=== PATIENT | female | born 1970 | race Caucasian/White ===

== ENCOUNTER 2016-06-26 12:18 | Emergency (ER) | payer OTHER ==
[~2016-06-26] VITALS: Ht 172.7 cm; Wt 79.4 kg
[~2016-06-26 12:18] MED LIST: AZITHROMYCIN250 MG PO; BENTYL20 MG PO; CLINDAMYCIN HY300 MG PO; CYCLOBENZAPRINE5 M2 PO; DILAUDID2 M1 PO; FLAG500 PO; MEDROL4 M2 PO; TESSALON PERLE100 MG PO; TRAMADOL50 MG PO; ZOFRAN ODT4 MG PO
--- NOTE | 2016-06-26 15:27 | ED GI/GU/ABDOMINAL COMPLAINT ---
History of Present Illness General Chief Complaint: General Adult Stated Complaint: PT THINKS ITS HER GALLBLADDER Source: patient, old records Exam Limitations: no limitations Vital Signs & Intake/Output Vital Signs & Intake/Output Vital Signs Date Time Temp Pulse Resp B/P Pulse O2 O2 Flow FiO2 Ox Delivery Rate 06/26 1738 98.0 62 18 108/72 98 Room Air 06/26 1555 97.8 63 20 110/72 99 Room Air 06/26 1226 98.2 77 20 138/92 99 Room Air Allergies Coded Allergies: Penicillins (Severe, THROAT CLOSES 06/26/16) hydrocodone (Mild, ITCHING 06/26/16) morphine (Mild, ITCHING 06/26/16) oxycodone (Mild, ITCHING 06/26/16) Reconcile Medications Cholecalciferol (Vitamin D3) (Vitamin D3) (Unknown Strength) CAPSULE (Unknown Dose) PO DAILY SUPPLEMENT (Reported) Cyanocobalamin (Vitamin B-12) (Unknown Strength) TABLET (Unknown Dose) PO DAILY SUPPLEMENT (Reported) Fluticasone Propionate (Flonase Allergy Relief) 50 MCG/ACTUATION SPRAY.SUSP 2 SPRAY NASB DAILY ALLERGIES (Reported) Ibuprofen 200 MG CAPSULE 2-4 CAP PO PRN PAIN (Reported) Ondansetron (Zofran Odt) 4 MG TAB.RAPDIS 1 TAB SL TID PRN NAUSEA Pantoprazole Sodium (Protonix) 40 MG TABLET.DR 1 TAB PO DAILY EPIGASTRIC PAIN Triage Note: TRIAGE: PT TO ER C/C MID/UPPER ABD PAIN WHICH RADIATES STRAIGHT THROUGH INTO BACK, ONSET SATURDAY. CONSTANT SINCE ONSET. +N/-V/-D. LNBM YESTERDAY. -URINARY S/S. LMP 05/13/2016. STATES DECREASED PO INTAKE WELL. Triage Nurses Notes Reviewed? yes ? n Is pt currently ? No HPI: PATIENT IS A 46-YEAR-OLD FEMALE PRESENTS COMPLAINING OF UPPER ABDOMINAL PAIN. sYMPTOMS ONSET ON saturday. Increasing belching sensation and nausea associated with her pain. Pain feels similar to when she had a "inflamed gallbladder" previously. Eating exacerbates symptoms. Pain radiates through to her back. Low-grade fever at home. Symptoms are currently moderate to severe. Low grade fevers. Denies vomiting. Past History Travel History Traveled to [place] past 21 day No Medical History Any Pertinent Medical History? see below for history Neurological: migraine EENT: NONE Cardiovascular: hyperlipidemia, PVC Respiratory: asthma, (CHILDHOOD). 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 No Review of Systems Review of Systems Constitutional: Reports: fever, malaise. Denies: chills. EENTM: Reports: no symptoms. Respiratory: Denies: cough, short of breath. Cardiovascular: Denies: chest pain. GI: Reports: see HPI. Genitourinary: Reports: no symptoms. Musculoskeletal: Reports: no symptoms. Skin: Reports: no symptoms. Neurological/Psychological: Reports: no symptoms. Hematologic/Endocrine: Reports: no symptoms. Immunologic/Allergic: Reports: no symptoms. Physical Exam Physical Exam General Appearance: well developed/nourished, alert, awake Head: atraumatic, normal appearance Eyes: Bilateral: normal appearance, PERRL, EOMI. Ears, Nose, Throat, Mouth: hearing grossly normal, moist mucous membrane Neck: normal inspection, supple, full range of motion Respiratory: normal breath sounds, chest non-tender, no respiratory distress, lungs clear Cardiovascular: regular rate/rhythm Gastrointestinal: normal bowel sounds, soft, EPIGASTRIC AND RIGHT UPPER QUADRANT TENDERNESS Back: normal inspection, normal range of motion Extremities: normal range of motion Neurologic/Psych: no motor/sensory deficits, awake, alert, oriented x 3, normal gait, normal mood/affect Skin: intact, normal color, warm/dry Core Measures ACS in differential dx? No Severe Sepsis Present: No Septic Shock Present: No Progress Differential Diagnosis: AAA, AMI, appendicitis, biliary colic, colon cancer, cholecystitis, diverticulitis, gastritis, hepatitis, ischemic bowel, inflamm bowel dis, kidney stone, ovarian cyst, ovarian torsion, pancreatitis, peptic ulcer, PUD/GERD, perforated viscous, SBO, UTI/pyelo Plan of Care: Orders Procedure Date/time Status LIPASE 06/26 1532 Complete COMPREHENSIVE METABOLIC PANEL 06/26 1532 Complete CBC WITHOUT DIFFERENTIAL 06/26 1532 Complete AMYLASE 06/26 1532 Complete Laboratory Tests 06/26/16 1540: Anion Gap 11, Estimated GFR > 60, BUN/Creatinine Ratio 16.7, Glucose 96, Calcium 9.8, Total Bilirubin 0.9, AST 22, ALT 40, Alkaline Phosphatase 54, Total Protein 7.3, Albumin 4.1, Globulin 3.2, Albumin/Globulin Ratio 1.3, Amylase 39, Lipase 50, CBC w Diff NO MAN DIFF REQ, RBC 4.73, MCV 90.4, MCH 30.1, RDW 13.1, MPV 8.5, Gran % 62.6, Lymphocytes % 27.8, Monocytes % 6.5, Eosinophils % 2.5, Basophils % 0.6, Absolute Granulocytes 3.9, Absolute Lymphocytes 1.7, Absolute Monocytes 0.4 , Absolute Eosinophils 0.2, Absolute Basophils 0, PUBS MCHC 33.3 Results of labs and imaging discussed with patient. Patient afebrile, normal white blood cell count, normal LFT's, negative Govea's sign, no acute findings on ultrasound. Appears stable for outpatient follow up. (BRIT ROBBINS,DAYANA) Diagnostic Imaging: Viewed by Me: Ultrasound. Discussed w/RAD: Ultrasound. Radiology Impression: PATIENT: ELEAZAR SALGADO PRESENT AGE: 46 PATIENT ACCOUNT NO: [id number] : 70 LOCATION: [facility] ORDERING PHYSICIAN: DAYANA ROBBINS SERVICE DATE: 06/26/16 EXAM TYPE: US - US-LIMITED ABDOMEN EXAMINATION: US ABDOMEN LIMITED CLINICAL INFORMATION: 46-year-old woman with epigastric and right upper quadrant pain. COMPARISON: 02/17/2015 CT TECHNIQUE: Real-time imaging of the right upper quadrant abdominal viscera. FINDINGS: PANCREAS: Normal. LIVER: Normal. The liver demonstrates normal size, contour and echogenicity. No focal lesion or intrahepatic biliary duct dilatation. GALLBLADDER: Normal. The gallbladder is physiologically distended without evidence of stones, sludge, polyps, significant wall thickening or pericholecystic fluid. The patient does report mild tenderness in the region of the gallbladder however. COMMON BILE DUCT: Normal in caliber measuring 0.3 cm in diameter. RIGHT KIDNEY: Normal. No hydronephrosis. No renal calculi or focal parenchymal lesions. The kidney measures 10.6 cm in maximum dimension. FREE FLUID: None. IMPRESSION: Although the patient reports mild tenderness over the gallbladder, the sonographic appearance of the right upper quadrant is felt to be within the range of normal. DICTATED BY: FRANKI NICHOLE MD DATE/TIME DICTATED:1707 NON MORSE INTERCEPT TECHNICIAN:SONDRA DATE/TIME TRANSCRIBED:06/26/161707 CONFIDENTIAL, DO NOT COPY WITHOUT APPROPRIATE AUTHORIZATION. 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 Velasquez). Call tomorrow morning for appointment to be seen within one week for further evaluation. Return to the emergency department if fevers, pain uncontrollable, unable to say hydrated, or worsening of symptoms. Departure Forms: Customer Survey General Discharge Information Prescriptions: Current Visit Scripts Pantoprazole Sodium (Protonix) 1 TAB PO DAILY #14 TAB Ondansetron (Zofran Odt) 1 TAB SL TID PRN NAUSEA #10 TAB
[2016-06-26] MEDS ORDERED: VITAMIN B-121000 MC3 PO (15:33)
[2016-06-26] MEDS ORDERED: IBUPROFEN200 M3 PO (15:33)
[2016-06-26] MEDS ORDERED: VITAMIN D31000 UNI1 PO (15:33)
[2016-06-26] MEDS ORDERED: FLONASE ALLERG9.9 ML NASB (15:34)
[2016-06-26 15:56] LABS: ABSOLUTE BASOPHIL COUNT 0 /CUMM (0.0-0.2); ABSOLUTE EOSINOPHIL COUNT 0.2 /CUMM (0.0-0.7); ABSOLUTE GRANULOCYTE CT 3.9 /CUMM (1.4-6.5); ABSOLUTE LYMPH COUNT 1.7 /CUMM (1.2-3.4); ABSOLUTE MONOCYTE COUNT 0.4 /CUMM (0.10-0.60); BASOPHIL % 0.6 % (0.0-2.0); EOSINOPHIL % 2.5 % (0-5); GRANULOCYTE % 62.6 % (42.2-75.2); HEMATOCRIT 42.8 % (37-47); MEAN CORPUSCULAR HGB 30.1 PG (27.0-31.0); MEAN CORPUSCULAR HGB CONC 33.3 G/DL (33.0-37.0); MEAN CORPUSCULAR VOLUME 90.4 FL (81.0-99.0); MEAN PLATELET VOLUME 8.5 FL (7.4-10.4); PLATELET COUNT 172 /CUMM (130-400); RBC DISTRIBUTION WIDTH 13.1 % (11.5-14.5); RED BLOOD CELL CT 4.73 /CUMM (4.20-5.40); WHITE BLOOD CELL COUNT 6.2 /CUMM (4.8-10.8)
--- NOTE | 2016-06-26 17:14 | ULTRASOUND REPORT ---
EXAMINATION: US ABDOMEN LIMITED CLINICAL INFORMATION: 46-year-old woman with epigastric and right upper quadrant pain. COMPARISON: 02/17/2015 CT TECHNIQUE: Real-time imaging of the right upper quadrant abdominal viscera. FINDINGS: PANCREAS: Normal. LIVER: Normal. The liver demonstrates normal size, contour and echogenicity. No focal lesion or intrahepatic biliary duct dilatation. GALLBLADDER: Normal. The gallbladder is physiologically distended without evidence of stones, sludge, polyps, significant wall thickening or pericholecystic fluid. The patient does report mild tenderness in the region of the gallbladder however. COMMON BILE DUCT: Normal in caliber measuring 0.3 cm in diameter. RIGHT KIDNEY: Normal. No hydronephrosis. No renal calculi or focal parenchymal lesions. The kidney measures 10.6 cm in maximum dimension. FREE FLUID: None. IMPRESSION: Although the patient reports mild tenderness over the gallbladder, the sonographic appearance of the right upper quadrant is felt to be within the range of normal.
[2016-06-26] MEDS ORDERED: PROTONIX40 M3 PO (17:33)
[2016-06-26] MEDS ORDERED: ZOFRAN ODT4 M1 SL (17:33)
[2016-06-26 17:38] VITALS: BP 108/72
== END 2016-06-26 17:39 ==
LOC: ERH 12:18
PROVIDERS: Physician Assistant
DX: R10.10 Upper abdominal pain, unspecified (principal)